=== PATIENT | female | born 1995 | race Caucasian/White ===

== ENCOUNTER 2019-03-23 06:26 | Inpatient (IN) | payer BC ==
[2019-03-23] MEDS: Lactated Ringer's 1,000 ML IV SCH ×2 (07:11→10:24)
[2019-03-23] MEDS ORDERED: HYDROcodone/Acetaminophen 5/325 mg Tablet PO PRN ×6 (07:30→17:48)
[2019-03-23] MEDS ORDERED: Butorphanol Tartrate 1 MG/ML VIAL SLOW IVP PRN (07:30)
[2019-03-23] MEDS ORDERED: Carboprost 250 MCG/ML AMP IM PRN (07:30)
[2019-03-23] MEDS ORDERED: Misoprostol 200 MCG TAB PR PRN (07:30)
[2019-03-23] MEDS ORDERED: NS w/ Oxytocin 10 units 500 ML IV SCH ×3 (07:30→08:45)
[2019-03-23] MEDS ORDERED: Diphenoxylate HCl/Atropine Tablet PO PRN ×2 (07:30)
[2019-03-23] MEDS ORDERED: Methylergonovine 0.2 MG/ML VIAL IM PRN ×2 (07:30→17:48)
[2019-03-23] MEDS ORDERED: NS / Oxytocin 40 units/1000ml 1,000 ML IV PRN (07:30)
[2019-03-23] MEDS ORDERED: Lidocaine 1% (PF) 30 ML VIAL SC PRN (07:30)
[2019-03-23] MEDS ORDERED: Acetaminophen 500 MG TAB PO PRN (07:30)
[2019-03-23] MEDS ORDERED: Promethazine HCl 25 MG/ML VIAL IM PRN ×3 (07:30→17:48)
[2019-03-23] MEDS ORDERED: Ondansetron PF 4 MG/2 ML Vial IVP PRN ×3 (07:30→17:48)
[2019-03-23] MEDS ORDERED: hydrALAZINE 20 MG/ML VIAL SLOW IVP PRN ×3 (07:30→17:48)
[2019-03-23] MEDS ORDERED: Ibuprofen 800 MG TAB PO PRN (07:30)
--- NOTE | 2019-03-23 07:35 | PDOC.LDHP ---
Labor and Delivery H&P HPI: 23 y/o at 39 and 0/7 weeks presents for term induction of labor Current gestational age (weeks): 39 Due date: 03/30/19 Grav: 3 Para: 2 Current complications: none Abnormal US findings: No Current medications: pre-caitlin vitamins Previous surgical history: none Social history: none - Physical Exam Vital signs reviewed and normal: yes General: NAD, resting Heart: RRR Lungs: CTAB Abdomen: gravid Extremeties: no edema FHT: category 1 - Assessment L&D Assessment: elective induction at term - Plan Plan: admit to L&D, cervical ripening
[2019-03-23 07:38] VITALS: BMI 29.9
[2019-03-23 08:07] LABS: Hemoglobin 13.1 g/dL (12.0-16.0); Mean Corpuscular HGB CONC 35.8 g/dL (32.0-36.0); Mean Corpuscular Hemoglobin 31.7 pg (27.0-31.0); Mean Corpuscular Volume 88.5 fL (78.0-98.0); Mean Platelet Volume 8.7 fL (7.4-10.4); Platelet Count 224 thou/uL (130-400); RBC Distribution Width 11.8 % (11.5-14.5); Red Blood Cell (RBC) Count 4.13 mill/uL (4.20-5.40); White Blood Cell (WBC) Count 13.7 thou/uL (4.8-10.8)
[2019-03-23] MEDS ORDERED: FLU VACC QS2019-20(6MOS UP)/PF 60 MCG/0.5 ML SYRINGE IM ONE (08:30)
[2019-03-23 08:48] LABS: Syphilis Antibody Nonreactive (Nonreactive); Syphilis Antibody Index 0.04 S/CO (<1.00 Non-Reactive)
[2019-03-23 08:49] LABS: HBSAg Index 0.19 S/CO (0-0.99); Hep B Surf Ag Non-Reactive S/CO (NonReactive)
[2019-03-23] MEDS ORDERED: Bupivacaine/Epinephrine 0.25% 30 ML VIAL ONE (09:00)
[2019-03-23] MEDS ORDERED: Fentanyl 4 mcg/Bup 0.1% Cadd 100 ML ONE (10:13)
[2019-03-23] MEDS ORDERED: diphenhydrAMINE 50 MG/ML VIAL IVP PRN (10:55)
[2019-03-23] MEDS ORDERED: Acetaminophen 325 MG TAB PO PRN (10:55)
[2019-03-23] MEDS ORDERED: Naloxone HCl 0.4 mg/ml Vial IVP PRN ×2 (10:55)
[2019-03-23] MEDS ORDERED: ePHEDrine/0.9% NaCl/PF SYRINGE 50 mg/10 ml SLOW IVP PRN (10:55)
[2019-03-23] MEDS ORDERED: Lactated Ringer's 500 ML IV PRN (10:55)
[2019-03-23] MEDS ORDERED: Fentanyl 4 mcg/Bupivacaine 0.1% Cassette 100 ML EPIDURAL SCH (11:00)
[2019-03-23] MEDS ORDERED: Communication Order-Pharmacy FS SCH (11:00)
[2019-03-23] MEDS: NS / Oxytocin 40 units/1000ml 1,000 ML IV SCH ×2 (15:19→17:56)
--- NOTE | 2019-03-23 15:27 | PDOC.OPDEL ---
OB Operative/Delivery Note Delivery Dr/Surgeon: Suhas Assist: none Pre-Delivery Diagnosis: active labor, elective induction Procedure/Post Delivery Dx: spontaneous vaginal delivery Weeks gestation: 40 Anesthesia: epidural - Findings A Sex: female - 1 min: 8 - 5 min: 9 - Additional Findings/Plan Placenta delivered: spontaneous (Kebede at 1519, Baby delivery at 1515) Repaired Obstetrical Laceration: none Estimated blood loss: 100ml max (QBL was under 20). Compilations/Other Findings: Vigorous female. No NC, intact placenta with 3VC. All counts correct. I was asked to stand-by as Dr Ruiz was not yet here in L&D. Post delivery plan: recovery in LICU
[2019-03-23] MEDS ORDERED: Lanolin Ointment 7 GM TUBE TOP PRN ×2 (15:28→17:48)
[2019-03-23] MEDS ORDERED: Milk Of Magnesia 30 ML UDCUP PO PRN ×2 (15:28→17:48)
[2019-03-23] MEDS ORDERED: Preparation H Ointment 28 GM TUBE PR PRN ×2 (15:28→17:48)
[2019-03-23] MEDS ORDERED: Bisacodyl 10 MG SUPP PR PRN ×2 (15:28→17:48)
[2019-03-23] MEDS ORDERED: Zolpidem Tartrate 5 MG TAB PO PRN (17:48)
[2019-03-23] MEDS ORDERED: diphenhydrAMINE 25 MG CAP PO PRN (17:48)
[2019-03-23] MEDS ORDERED: Benzocaine-Menthol 82.5 ML CAN TOP PRN (17:48)
[2019-03-23] MEDS ORDERED: Misoprostol 200 MCG TAB VAG PRN (17:48)
[2019-03-23] MEDS ORDERED: Adacel (T-DAP) 0.5 ML SYRINGE IM ONE (17:48)
[2019-03-23] MEDS ORDERED: Measles/Mumps/Rubella 10 MCG/0.5 ML VIAL SC ONE (17:48)
[2019-03-23] MEDS ORDERED: NS / Oxytocin 40 units/1000ml 1,000 ML IV SCH (17:48)
[2019-03-23] MEDS ORDERED: Varicella virus, LIVE 0.5 ML VIAL SC ONE (17:48)
[2019-03-23] MEDS ORDERED: Ferrous Sulfate 325 MG TAB PO SCH (17:48)
[2019-03-23] MEDS: Ibuprofen 800 MG TAB PO SCH (17:50)
[2019-03-23] MEDS: Ferrous Sulfate 325 MG TAB PO SCH (18:12)
[2019-03-23] MEDS ORDERED: Docusate Calcium (SURFAK) 240 MG CAP PO SCH (21:00)
[2019-03-23] MEDS: Docusate Calcium (SURFAK) 240 MG CAP PO SCH (21:40)
[2019-03-23] MEDS ORDERED: Ibuprofen 800 MG TAB PO SCH (22:00)
--- NOTE | 2019-03-24 01:22 | DN ---
DATE OF PROCEDURE: 03/23/2019 DELIVERY TIME: At 1517 hours, Central Daylight Savings Time. PREOPERATIVE DIAGNOSIS: Intrauterine at 39 weeks and zero days. POSTOPERATIVE DIAGNOSIS: Intrauterine at 39 weeks and zero days. PROCEDURE PERFORMED: Spontaneous vaginal delivery over intact perineum. FINDINGS: Viable female weighing 3372 g or 7 pounds 7 ounces. Apgars of 8 and 9. COMPLICATIONS: None. QUANTITATIVE BLOOD LOSS: Noted to be 13. DELIVERING PHYSICIAN: In this case was Dr. Barrie Dai. DETAILS OF PROCEDURE: I was called in my clinic to come for delivery and immediately left the clinic and was en route and was informed approximately 45 minutes later that the patient was delivering with Dr. Barrie Dai present. Once arriving to the hospital, I went and checked on the patient and was informed that delivery would have been completed and the baby was in her arms already. The patient had no lacerations with precipitous of the child and then rapid and precipitous delivery of the placenta as well. Estimated blood loss appeared to be minimal. After I arrived, the blood loss was noted to still be minimal with excellent hemostasis. At that time, the patient was happy, comfortable, had no further concerns. I visited with her and the family for the next several minutes. The delivery report prior to me arriving should be provided by Dr. Barrie Dai, who attended the entire delivery as the hospitalist first to the delivery. Job ID: [id number]
[2019-03-24] MEDS: Ibuprofen 800 MG TAB PO SCH ×2 (02:02→13:26)
[2019-03-24] MEDS ORDERED: Varicella virus, LIVE 0.5 ML VIAL SC ONE (09:00)
[2019-03-24] MEDS ORDERED: Adacel (T-DAP) 0.5 ML SYRINGE IM ONE (09:00)
[2019-03-24] MEDS ORDERED: Measles/Mumps/Rubella 10 MCG/0.5 ML VIAL SC ONE (09:00)
[2019-03-24] MEDS ORDERED: Prenatal Vitamin 1 TAB PO SCH ×2 (09:00)
[2019-03-24] MEDS: Ferrous Sulfate 325 MG TAB PO SCH ×2 (09:27→17:37)
[2019-03-24] MEDS: Docusate Calcium (SURFAK) 240 MG CAP PO SCH (09:49)
[2019-03-24 11:35] VITALS: BP 111/66; TEMP 98.9
--- NOTE | 2019-03-24 12:41 | PDOC.PP ---
Post Progress Note Post Day #: 1 PO intake tolerated: yes Flatus: yes Ambulation: yes Vital Signs (12 hours) Temp Pulse Resp BP Pulse Ox 03/24/19 11:34 98.9 F 80 16 111/66 99 03/24/19 07:18 98.7 F 68 16 110/71 98 03/24/19 04:10 98.1 F 85 18 129/80 03/24/19 00:45 98.8 F 84 18 117/60 Weight Weight 180 lb - Physical Examination General: NAD Cardiovascular: no m/r/g, RRR Respiratory: clear to auscultation bilaterally, non-labored breathing Abdominal: + bowel sounds, lochia Extremities: negative homans (B) Neurological: no gross focal deficits Psychiatric: A&Ox3, normal affect (DC to home today) Result Diagrams: 03/23/19 07:45 Additional Labs: Post Labs Blood Type O POSITIVE 03/23/19 09:19 Hep Bs Antigen Non-Reactive S/CO (NonReactive) 03/23/19 07:45
[2019-03-24] MEDS ORDERED: FLU VACC QS2019-20(6MOS UP)/PF 60 MCG/0.5 ML SYRINGE IM ONE (14:30)
== END 2019-03-24 18:30 | disposition home or self-care (01) | DRG 807 ==
LOC: L&D 06:26 → 3SW 18:25
PROVIDERS: ADMIT Obstetrics & Gynecology; ATTEND Obstetrics & Gynecology
PROC: 10E0XZZ Delivery of Products of Conception, External Approach (ICD-10-PCS; principal; 2019-03-23)
PROC: 3E033VJ Introduction of Other Hormone into Peripheral Vein, Percutaneous Approach (ICD-10-PCS; 2019-03-23)
DX: O80 Encounter for full-term uncomplicated delivery (principal); Z37.0 Single live birth; Z3A.39 39 weeks gestation of pregnancy
CPT/HCPCS: 36415; 85027; 86780; 86850; 86900; 86901; 87340; 90471; 90686; G0008; J2590